=== PATIENT | female | born 1975 | race Caucasian/White ===

== ENCOUNTER 2017-01-25 13:36 | Emergency (ER) | payer OTHER ==
[~2017-01-25] VITALS: Ht 147.3 cm; Wt 68.0 kg
[~2017-01-25 13:36] MED LIST: AMOXIL250 MG ORAL; IBUPROFEN600 MG ORAL; MACROBID100 MG ORAL; NKM; TRAMADOL HCL50 MG ORAL; ZOFRAN ODT4 MG ORAL
[2017-01-25 14:12] VITALS: BP 139/90
[2017-01-25] MEDS ORDERED: BENADRYL25 MG ORAL (14:16)
[2017-01-25] MEDS ORDERED: Ketorolac 60mg Inj IM ONE (14:45)
[2017-01-25] MEDS ORDERED: CYCLOBENZAPRINE10 MG ORAL (14:48)
[2017-01-25] MEDS ORDERED: LIDOCAINE700 M1 TP (14:48)
[2017-01-25] MEDS ORDERED: IBUPROFEN600 MG ORAL (14:48)
[2017-01-25 15:13] VITALS: BP 132/86
--- NOTE | 2017-01-25 22:11 | Emergency Room Report ---
History of Present Illness General Chief Complaint: Back Pain-No Injury Source: Patient Present Illness HPI 41 YO female presents to the emergency department complaining of low back pain x 2 weeks with radiation down into the legs in a shooting sharp fashion with certain movements. denies hx of previous episodes, denies fevers,chills, hx of cancer, or recent spinal procedures. denies in continence. Patient denies fall or trauma denies weakness in the lower extremities. pt states she tried Advil several times with no relief. Denies numbness tingling or loss of sensation or gross motor movements of the extremities, incontinence of bowel or bladder. Denies CP, Palpitations, LOC, AMS, dizziness, Changes in Vision, Sensation, paresthesias, or a sudden severe headache. Allergies: Coded Allergies: CODEINE (Verified Allergy, Unknown, 01/25/17) Patient History Past Medical History: see triage record Past Surgical History: none Pertinent Family History: none Last Menstrual Period: on period Now: No Immunizations: UTD Reviewed Nursing Documentation: PMH: Agreed, PSxH: Agreed Nursing Documentation-PMH Past Medical History: No History, Except For Review of Systems All Other Systems: negative except mentioned in HPI Physical Exam Vital Signs Date Time Temp Pulse Resp B/P Pulse Ox O2 Delivery O2 Flow Rate FiO2 01/25/17 14:12 98.4 93 16 139/90 95 Room Air Sp02 EP Interpretation: reviewed, normal General Appearance: no apparent distress, alert, GCS 15, non-toxic Head: normocephalic, atraumatic Eyes: bilateral eye PERRL, bilateral eye normal inspection ENT: hearing grossly normal, normal pharynx, no angioedema, normal voice Neck: full range of motion, no meningismus, no bony tend, supple/symm/no masses Respiratory: chest non-tender, lungs clear, normal breath sounds, speaking full sentences Cardiovascular #1: regular rate, rhythm, no edema Gastrointestinal: non tender, soft, no guarding, no rebound Rectal: deferred Genitourinary: normal inspection, no CVA tenderness Musculoskeletal: back normal, gait/station normal, normal range of motion, no calf tenderness, tender - left sided lumbar paraspinal ttp , and radiating pain with FROM, no obvious deformities, no erythema, no increased temperature to palpation. Neurologic: alert, oriented x3, responsive, motor strength/tone normal, sensory intact, cerebellar normal, normal gait, speech normal, other - no evidence of incontinence Psychiatric: judgement/insight normal, memory normal, mood/affect normal, no suicidal/homicidal ideation Reflexes: 2+ knee (R), 2+ knee (L) Skin: normal color, no rash, warm/dry, well hydrated Lymphatic: no adenopathy Medical Decision Making PA Attestation Dr. Plascencia is my supervising Physician whom patient management has been discussed with. Diagnostic Impression: Primary Impression: Muscle spasm of back Additional Impressions: Sciatica Qualified Codes: M54.31 - Sciatica, right side; M54.32 - Sciatica, left side Back pain Qualified Codes: M54.42 - Lumbago with sciatica, left side; M54.41 - Lumbago with sciatica, right side ER Course Patient presents to the emergency department complaining of low back pain x 2 weeks with radiation down into the legs in a shooting sharp fashion with certain movements. denies hx of previous episodes, denies fevers,chills, hx of cancer, or recent spinal procedures. denies in continence. Ddx considered: epidural abscess, fracture, sprain/strain, meningitis, spinal chord injury. Vital signs reviewed and are WNL during ED visit. Pt. is afebrile with no signs of infection No new symptoms, and denies recent trauma. No saddle anesthesia noted, Pt. denies incontinence Neurovascular is intact ROM is limited due to pain * Mild Tenderness to palpation to paraspinal muscles of the lower back, no spinous process tenderness, no midline tenderness. *Pt. describes pain today as moderate and radiates across the lower back and intermittently down both legs. ORDERS: none warranted at this time. INTERVENTIONS: - 60mg IM Toradol DISCHARGE: At this time pt. is stable for d/c to home. Will provide printed patient care instructions, and any necessary prescriptions. Care plan and follow up instructions have been discussed with the patient prior to discharge. Last Vital Signs Date Time Temp Pulse Resp B/P Pulse Ox O2 Delivery O2 Flow Rate FiO2 01/25/17 15:13 98.4 87 16 132/86 97 Room Air Disposition: HOME, SELF-CARE Condition: Improved Scripts Lidocaine (Lidocaine) 1 Each Adh..patch 700 MG TP BID, #20 PATCH Prov: Svetlana Mora 01/25/17 Cyclobenzaprine Hcl* (FLEXERIL*) 10 Mg Tablet 10 MG ORAL THREE TIMES A DAY for 7 Days, #21 TAB Prov: Svetlana Mora 01/25/17 Ibuprofen* (MOTRIN*) 600 Mg Tablet 600 MG ORAL THREE TIMES A DAY, #30 TAB 0 Refills Prov: Svetlana Mora 01/25/17 Departure Forms: Return to Work Return to Work Date: Jan 27, 2017 Work Restrictions: No Heavy Lifting, No Prolonged Standing Other Restrictions: light duty x 1 week. Return to Full Activity: Feb 01, 2017 Patient Instructions: Back Pain, Adult, Sciatica Additional Instructions: Take medications as directed. Follow up with PCP in 3-5 days Return sooner to ED if new symptoms occur, or current symptoms become worse. Do not drink alcohol, drive, or operate heavy machinery while taking muscle relaxers as this may cause drowsiness. - Please note that this Emergency Department Report was dictated using [employer] technology software, occasionally this can lead to erroneous entry secondary to interpretation by the dictation equipment. Svetlana Mora Jan 25, 2017 22:11
== END 2017-01-25 15:16 | disposition home or self-care (01) ==
LOC: EMR 14:34
DX: M62.830 Muscle spasm of back (principal); M54.31 Sciatica, right side; M54.42 Lumbago with sciatica, left side; Z88.6 Allergy status to analgesic agent
CPT/HCPCS: 96372; 99284

== ENCOUNTER 2018-05-27 10:41 | Emergency (ER) | payer OTHER ==
[~2018-05-27] VITALS: Ht 147.3 cm; Wt 62.6 kg
[~2018-05-27 10:41] MED LIST changes: +BENADRYL25 MG ORAL; +CYCLOBENZAPRINE10 MG ORAL; +LIDOCAINE700 M1 TP
[2018-05-27 11:05] VITALS: BP 120/81
[2018-05-27] MEDS ORDERED: Isovue-300 100ml vial INJ PRN (11:30)
[2018-05-27] MEDS ORDERED: Norco 5mg/325mg tab ORAL ONE (11:30)
[2018-05-27 11:49] LABS: BASOPHILS % (AUTO) 0.3 % (0.0-2.0); EOSINOPHILS % (AUTO) 0.5 % (0.0-3.0); HEMATOCRIT 36.1 % (37.0-47.0); LYMPHOCYTES % (AUTO) 19.7 % (20.0-45.0); MEAN CORPUSCULAR VOLUME 86 FL (80-99); NEUTROPHILS % (AUTO) 75.5 % (45.0-75.0); PLATELET COUNT 307 K/UL (150-450); RED BLOOD COUNT 4.19 M/UL (4.20-5.40); RED CELL DISTRIBUTION WIDTH 11.9 % (11.6-14.8); WHITE BLOOD COUNT 8.3 K/UL (4.8-10.8)
[2018-05-27 11:53] LABS: ANION GAP 3 mmol/L (5-15); BLOOD UREA NITROGEN 9 mg/dL (7-18); CALCIUM 9.3 MG/DL (8.5-10.1); CARBON DIOXIDE 27 MMOL/L (21-32); CHLORIDE 106 MMOL/L (98-107); CREATININE 0.7 MG/DL (0.55-1.30); POTASSIUM 4.1 MMOL/L (3.5-5.1); SODIUM 136 MMOL/L (136-145)
[2018-05-27 11:54] LABS: APPEARANCE,URINE CLEAR; BILIRUBIN, URINE NEGATIVE (NEGATIVE); COLOR,URINE PALE YELLOW; GLUCOSE, URINE (UA) NEGATIVE (NEGATIVE); KETONES,URINE NEGATIVE (NEGATIVE); LEUKOCYTE ESTERASE ,URINE 3+ (NEGATIVE); NITRITE,URINE NEGATIVE (NEGATIVE); PH,URINE 5 (4.5-8.0); PROTEIN,URINE NEGATIVE (NEGATIVE); UROBILINOGEN,URINE NORMAL MG/DL (0.0-1.0)
[2018-05-27 11:57] LABS: ALANINE AMINOTRANSFERASE 22 U/L (12-78); ALBUMIN 3.3 G/DL (3.4-5.0); ALBUMIN/GLOBULIN RATIO 0.7 (1.0-2.7); ALKALINE PHOSPHATASE 94 U/L (46-116); ASPARTATE AMINO TRANSFERASE 16 U/L (15-37); BILIRUBIN,TOTAL 0.3 MG/DL (0.2-1.0)
[2018-05-27] MEDS ORDERED: Ketorolac 30mg Inj IV ONE (12:45)
--- NOTE | 2018-05-27 12:49 | Diagnostic Imaging Report ---
EXAM: CT Abdomen and Pelvis With Intravenous Contrast CLINICAL HISTORY: ABD PAIN TECHNIQUE: Axial computed tomography images of the abdomen and pelvis with intravenous contrast. CTDI is 0.15 + 12.10 mGy and DLP is 599 mGy-cm. One or more of the following dose reduction techniques were used: automated exposure control, adjustment of the mA and/or kV according to patient size, use of iterative reconstruction technique. COMPARISON: No relevant prior studies available. FINDINGS: Lung bases: Unremarkable. ABDOMEN: Liver: Unremarkable. Gallbladder and bile ducts: Cholecystectomy. Pancreas: Unremarkable. Spleen: Unremarkable. Adrenals: Unremarkable. Kidneys and ureters: 3.4 cm left renal cyst. No hydronephrosis. Left renal scar. Stomach and bowel: No shy mural thickening. Nonobstructive bowel gas pattern. PELVIS: Appendix: Unremarkable appendix. Bladder: Unremarkable. Reproductive: Query bulbous and heterogeneous appearing cervix. Small amount of fluid in the pelvis. Dominant follicle in the left ovary. ABDOMEN and PELVIS: Intraperitoneal space: Unremarkable. Bones/joints: No acute fracture. Soft tissues: 1 cm solid appearing opacity in the left outer breast. Vasculature: Unremarkable. No abdominal aortic aneurysm. Lymph nodes: Mild haziness and small nodes in the mesentery. Retroperitoneal, pelvic and inguinal nodes. IMPRESSION: 1. Unremarkable appendix. 2. Nonspecific nodes. 3. Other findings as above.
--- NOTE | 2018-05-27 14:27 | Emergency Room Report ---
History of Present Illness General Chief Complaint: Abdominal Pain Source: Patient Present Illness HPI 42-year-old female presents ED complaining of abdominal pain. Started around 1 AM. Notes pain to left lower quadrant. 10 out of 10, sharp, nonradiating. Denies nausea or vomiting. Denies any diarrhea or blood in stool. Denies fevers or chills. Notes history of ovarian cyst in the past. No other aggravating relieving factors. Denies any other associated symptoms Allergies: Coded Allergies: CODEINE (Verified Allergy, Unknown, 01/25/17) Patient History Past Medical History: none Past Surgical History: none Pertinent Family History: none Social History: Denies: smoking, alcohol use, drug use Now: No Immunizations: UTD Reviewed Nursing Documentation: PMH: Agreed; PSxH: Agreed Nursing Documentation-PMH Past Medical History: No History, Except For Review of Systems All Other Systems: negative except mentioned in HPI Physical Exam Vital Signs Date Time Temp Pulse Resp B/P (MAP) Pulse Ox O2 Delivery O2 Flow Rate FiO2 05/27/18 10:53 98.6 80 19 120/81 98 Room Air 98.6 Sp02 EP Interpretation: reviewed, normal General Appearance: no apparent distress, alert, GCS 15, non-toxic Head: normocephalic, atraumatic Eyes: bilateral eye normal inspection, bilateral eye PERRL ENT: hearing grossly normal, normal pharynx, no angioedema, normal voice Neck: full range of motion, supple/symm/no masses Respiratory: chest non-tender, lungs clear, normal breath sounds, speaking full sentences Cardiovascular #1: regular rate, rhythm, no edema Cardiovascular #2: 2+ carotid (R), 2+ carotid (L), 2+ radial (R), 2+ radial (L) , 2+ dorsalis pedis (R), 2+ dorsalis pedis (L) Gastrointestinal: normal bowel sounds, soft, non-distended, no guarding, no rebound, tenderness - LLQ Rectal: deferred Genitourinary: normal inspection, no CVA tenderness Musculoskeletal: back normal, gait/station normal, normal range of motion, non- tender Neurologic: alert, oriented x3, responsive, motor strength/tone normal, sensory intact, speech normal Psychiatric: judgement/insight normal, memory normal, mood/affect normal, no suicidal/homicidal ideation Reflexes: 3+ bicep (R), 3+ bicep (L), 3+ tricep (R), 3+ tricep (L), 3+ knee (R) , 3+ knee (L) Skin: normal color, no rash, warm/dry, well hydrated Lymphatic: no adenopathy Medical Decision Making Diagnostic Impression: Primary Impression: UTI (lower urinary tract infection) Additional Impression: Ovarian cyst Qualified Codes: N83.202 - Unspecified ovarian cyst, left side ER Course Hospital Course 42-year-old F presents to ED with lower abdominal pain Differential diagnosis includes- cystitis, UTI, constipation, ovarian cyst/ torsion Clinical course Patient placed on stretcher. After initial history and physical I ordered labs , IV fluids, CT, pain meds Labs - no leukocytosis, electrolytes ok, LFTs normal, UA + bacteria CT A/P - no acute abdominal process, ? ovarian cyst Pelvic US - L ovarian cyst, good flow to ovary noted discussed findings with patient. Patient can be safely discharged to home at this time I feel this is a highly complex case requiring extensive working including EKG/ Rhythm strip, Xray/CT/US, Blood/urine lab work, repeat exams while in ED, and administration of strong opiates/narcotics for pain control, admission to hospital or close patient follow up. Diagnosis - ovarian cyst, UTI Stable and discharged to home with Rx Tramadol, Keflex. Followup with PMD. Return to ED if symptoms recur or worsen Labs Test 05/27/18 11:20 White Blood Count 8.3 K/UL (4.8-10.8) Red Blood Count 4.19 M/UL (4.20-5.40) Hemoglobin 12.0 G/DL (12.0-16.0) Hematocrit 36.1 % (37.0-47.0) Mean Corpuscular Volume 86 FL (80-99) Mean Corpuscular Hemoglobin 28.6 PG (27.0-31.0) Mean Corpuscular Hemoglobin Concent 33.3 G/DL (32.0-36.0) Red Cell Distribution Width 11.9 % (11.6-14.8) Platelet Count 307 K/UL (150-450) Mean Platelet Volume 7.1 FL (6.5-10.1) Neutrophils (%) (Auto) 75.5 % (45.0-75.0) Lymphocytes (%) (Auto) 19.7 % (20.0-45.0) Monocytes (%) (Auto) 4.0 % (1.0-10.0) Eosinophils (%) (Auto) 0.5 % (0.0-3.0) Basophils (%) (Auto) 0.3 % (0.0-2.0) Urine Color Pale yellow Urine Appearance Clear Urine pH 5 (4.5-8.0) Urine Specific [place] 1.015 (1.005-1.035) Urine Protein Negative (NEGATIVE) Urine Glucose (UA) Negative (NEGATIVE) Urine Ketones Negative (NEGATIVE) Urine Occult Blood Negative (NEGATIVE) Urine Nitrite Negative (NEGATIVE) Urine Bilirubin Negative (NEGATIVE) Urine Urobilinogen Normal MG/DL (0.0-1.0) Urine Leukocyte Esterase 3+ (NEGATIVE) Urine RBC 2-4 /HPF (0 - 2) Urine WBC 5-10 /HPF (0 - 2) Urine Squamous Epithelial Cells Moderate /LPF (NONE/OCC) Urine Bacteria Few /HPF (NONE) Urine HCG, Qualitative Negative (NEGATIVE) Sodium Level 136 MMOL/L (136-145) Potassium Level 4.1 MMOL/L (3.5-5.1) Chloride Level 106 MMOL/L (98-107) Carbon Dioxide Level 27 MMOL/L (21-32) Anion Gap 3 mmol/L (5-15) Blood Urea Nitrogen 9 mg/dL (7-18) Creatinine 0.7 MG/DL (0.55-1.30) Estimat Glomerular Filtration Rate > 60 mL/min (>60) Glucose Level 92 MG/DL (74-106) Calcium Level 9.3 MG/DL (8.5-10.1) Total Bilirubin 0.3 MG/DL (0.2-1.0) Aspartate Amino Transf (AST/SGOT) 16 U/L (15-37) Alanine Aminotransferase (ALT/SGPT) 22 U/L (12-78) Alkaline Phosphatase 94 U/L (46-116) Total Protein 7.8 G/DL (6.4-8.2) Albumin 3.3 G/DL (3.4-5.0) Globulin 4.5 g/dL Albumin/Globulin Ratio 0.7 (1.0-2.7) Lipase 121 U/L (73-393) CT/MRI/US Diagnostic Results CT/MRI/US Diagnostic Results #1: Imaging Test Ordered: CT A/P Impression no acute process. ? ovarian cyst on left CT/MRI/US Diagnostic Results #2: Imaging Test Ordered: Pelvic US Impression L ovarian cyst Last Vital Signs Date Time Temp Pulse Resp B/P (MAP) Pulse Ox O2 Delivery O2 Flow Rate FiO2 05/27/18 14:01 98.6 05/27/18 11:05 80 19 120/81 98 Room Air Status: improved Disposition: HOME, SELF-CARE Condition: Stable Scripts Cephalexin* (KEFLEX*) 500 Mg Capsule 500 MG ORAL EVERY 6 HOURS, #20 CAP Prov: Kehinde Neely MD 05/27/18 Tramadol Hcl* (ULTRAM*) 50 Mg Tablet 50 MG ORAL Q6H PRN for For Pain, #20 TAB 0 Refills Prov: Kehinde Neely MD 05/27/18 Referrals: NON PHYSICIAN (PCP) Dakota John MD May 27, 2018 14:27
[2018-05-27 15:30] VITALS: BP 118/78
[2018-05-27] MEDS ORDERED: TRAMADOL HCL50 MG ORAL (16:39)
[2018-05-27] MEDS ORDERED: CEPHALEXIN500 MG ORAL (16:39)
--- NOTE | 2018-05-27 16:46 | Diagnostic Imaging Report ---
EXAM: US Pelvis Complete, Transabdominal and endovaginal CLINICAL HISTORY: PAIN TECHNIQUE: Real-time transabdominal and endo vaginal pelvic ultrasound (complete) with image documentation. COMPARISON: No relevant prior studies available. FINDINGS: Uterus/cervix: Uterus measures 11.8 x 6.2 x 3.5 cm. Endometrium measures 3 mm. Right ovary: Poor visualization and assessment of the right ovary. Left ovary: Left ovary measures 5.2 x 5.3 x 2.4 cm. Dominant follicle. Free fluid: Small amount of fluid in the pelvis. Other findings: Negative test reported. IMPRESSION: Dominant follicle in the left ovary. Right ovary poorly visualized.
[2018-05-27 16:50] VITALS: BP 118/78
== END 2018-05-27 17:18 | disposition home or self-care (01) ==
LOC: EMR 11:15
DX: N39.0 Urinary tract infection, site not specified (principal); N83.202 Unspecified ovarian cyst, left side; Z88.6 Allergy status to analgesic agent
CPT/HCPCS: 36415; 74177; 76830; 76856; 80053; 81003; 81025; 83690; 85025; 96360; 96372; 99284; J1885; Q9967